=== PATIENT | male | born 1965 | race Caucasian/White ===

== ENCOUNTER 2017-10-23 06:17 | Day surgery (SDC) | payer BC ==
[~2017-10-23] VITALS: Ht 190.5 cm; Wt 119.2 kg
[2017-10-23] MEDS ORDERED: LACTATED RINGERS 1,000 ML IV SCH (06:56)
[2017-10-23 07:02] VITALS: BP 142/91
[2017-10-23] MEDS ORDERED: MIDAZOLAM 1 MG/ML, 2ML ONE (07:11)
[2017-10-23] MEDS ORDERED: FENTANYL PF 100 MCG/2ML ONE (07:12)
[2017-10-23] MEDS ORDERED: GLIM2TAB2 PO (07:13)
[2017-10-23] MEDS ORDERED: FENO160T PO (07:13)
[2017-10-23] MEDS ORDERED: CANA1TAB2 PO (07:13)
[2017-10-23] MEDS ORDERED: PIOG30TA3 PO (07:13)
[2017-10-23] MEDS ORDERED: TERB250T14 PO (07:13)
[2017-10-23] MEDS ORDERED: GABAPENTIN 300 MG CAPSULE ONE (07:31)
[2017-10-23] MEDS ORDERED: ACETAMINOPHEN 500 MG TABLET ONE (07:31)
[2017-10-23] MEDS ORDERED: BUPIVACAINE/PF 0.5% ONE (07:55)
[2017-10-23] MEDS ORDERED: LIDOCAINE 1%, 20ML ONE (07:55)
[2017-10-23] MEDS ORDERED: PROPOFOL 10 MG/ML, 20ML ONE (08:09)
[2017-10-23] MEDS ORDERED: ONDANSETRON 2MG/ML, 2ML ONE (08:09)
[2017-10-23] MEDS ORDERED: SUCCINYLCHOLINE 20 MG/ML, 10ML ONE (08:09)
[2017-10-23] MEDS ORDERED: CEFAZOLIN 1,000 MG ONE (08:09)
[2017-10-23 08:28] LABS: ALANINE AMINOTRANSFERASE 27 U/L (12-78); ALBUMIN 3.8 g/dL (3.4-5.0); ANION GAP 9 mmol/L (5-15); CALCIUM 8.6 mg/dL (8.5-10.1); CHLORIDE 106 mmol/L (98-107); CREATININE 1.39 mg/dL (0.7-1.3)
[2017-10-23 08:31] LABS: ALKALINE PHOSPHATASE 56 U/L (45-117); BILIRUBIN,TOTAL 0.4 mg/dL (0.2-1.0); TOTAL PROTEIN 7.6 g/dL (6.4-8.2)
[2017-10-23] MEDS ORDERED: OXYcodone 5 MG/5 ML ORAL.SOL UDC PO PRN (09:30)
[2017-10-23] MEDS ORDERED: LORazepam 2 MG/ML, 1ML IVPush PRN (09:30)
[2017-10-23] MEDS ORDERED: KETOROLAC 30 MG/1 ML IM PRN (09:30)
[2017-10-23] MEDS ORDERED: PROMETHAZINE 12.5 MG SUPP PR PRN (09:30)
[2017-10-23] MEDS ORDERED: hydrALAzine 20 MG/ML, 1ML IV PRN (09:30)
[2017-10-23] MEDS ORDERED: LABETALOL 5MG/ML, 20ML IV PRN (09:30)
[2017-10-23] MEDS ORDERED: HYDROmorphone 1 MG/ML, 1ML IV PRN (09:30)
[2017-10-23] MEDS ORDERED: ALBUTEROL SULFATE 2.5 MG/3 ML NPPB PRN (09:30)
[2017-10-23] MEDS ORDERED: FENTANYL PF 100 MCG/2ML IV PRN (09:30)
== END 2017-10-23 11:30 | disposition home or self-care (01) ==
LOC: OUT 06:17
PROVIDERS: ATTEND Orthopaedic Surgery
DX: E11.621 Type 2 diabetes mellitus with foot ulcer (principal); E11.40 Type 2 diabetes mellitus with diabetic neuropathy, unspecified; L97.528 Non-pressure chronic ulcer of other part of left foot with other specified severity; M62.462 Contracture of muscle, left lower leg
CPT/HCPCS: 27687; 27690; 28002; 28011; 36415; 80053; 82962; 87070; 87075; 87077; 87147; 87176; 87186; 87205; 93005; J0330; J0690; J2250; J2405; J2704; J3010; J3490; J7120